=== PATIENT | female | born 1930 | race Caucasian/White ===

== ENCOUNTER 2018-10-15 09:03 | Inpatient (IN) | payer OTHER, MEDICAID ==
[~2018-10-15] VITALS: Ht 152.4 cm; Wt 46.3 kg
[~2018-10-15 09:03] MED LIST: ASPI-864 PO; ATEN1TAB42 PO; FAMO40TA7 PO; LOSA25TA12 PO; NPH,100V SQ; SIMV20TA6 PO
[2018-10-15 09:42] LABS: HEMATOCRIT. 34.9 % (36.0-48.0); HEMOGLOBIN. 11.7 g/dL (12.0-16.0); MEAN CORPUSCULAR HEMOGLOBIN 26.1 pg (28.0-32.0); MEAN PLATELET VOLUME 7.2 fl (7.4-10.4); PLATELET 256 x1000/uL (130-400); RED BLOOD CELL COUNT 4.48 mill/uL (4.2-5.4); RED CELL DISTRIBUTION WIDTH 14.9 % (11.6-14.6)
[2018-10-15 09:47] LABS: CHLORIDE 101 mEq/L (98-107)
[2018-10-15 09:48] LABS: PROTHROMBIN TIME 10.3 sec (9.1-11.1)
[2018-10-15] MEDS ORDERED: ASPIRIN 81MG TABLET PO ONE (10:15)
[2018-10-15] MEDS ORDERED: SODIUM CHLORIDE 0.9% 1,000 ML IV ONE (10:15)
[2018-10-15 10:16] LABS: PLATELET ESTIMATE NORMAL
[2018-10-15] MEDS ORDERED: DEXTROSE 50% WATER 50ML SYRINGE IV PRN (10:45)
[2018-10-15] MEDS ORDERED: ONDANSETRON HCL 4MG/2ML INJ IV PRN (10:45)
[2018-10-15 11:13] LABS: CLARITY URINE CLEAR (CLEAR); COLOR URINE YELLOW (YELLOW); KETONES URINE TRACE (NEGATIVE); LEUKOCYTE ESTERASE URINE NEGATIVE (NEGATIVE); NITRITE URINE NEGATIVE (NEGATIVE); OCCULT BLOOD URINE NEGATIVE (NEGATIVE); PROTEIN URINE 3+ (NEGATIVE); SPECIFIC GRAVITY URINE 1.017 (1.005-1.030); UROBILINOGEN URINE 0.2 E.U./dL (0.2-1.0)
[2018-10-15] MEDS: CLONIDINE 0.1MG TABLET PO PRN (13:08)
[2018-10-15] MEDS: AMLODIPINE 5MG TABLET PO SCH ×2 (15:33→21:28)
[2018-10-15] MEDS ORDERED: LABETALOL 5MG/ML SYR 20 MG/4 ML SYRINGE IV ONE (16:00)
[2018-10-15] MEDS: LOSARTAN POTASSIUM 100 MG TABLET PO SCH (16:28)
[2018-10-15] MEDS: INSULIN LISPRO 100 UNITS/ML SUBCUT SCH ×2 (17:15→21:29)
[2018-10-15] MEDS: BLOOD SUGAR DIAGNOSTIC STRIP TEST SCH ×2 (17:15→21:19)
[2018-10-15 17:30] VITALS: BP 151/74
[2018-10-15 17:32] VITALS: BP 151/74
[2018-10-15] MEDS ORDERED: CLOP75TA33 PO (17:43)
[2018-10-15] MEDS ORDERED: BETA1TAB PO (17:44)
[2018-10-15] MEDS ORDERED: MEMA10TA19 PO (17:45)
[2018-10-15] MEDS ORDERED: QUET25TA34 PO (17:46)
[2018-10-15] MEDS ORDERED: SENN8.6T10 PO (17:47)
[2018-10-15] MEDS ORDERED: MEGE40TA27 PO (17:49)
[2018-10-15] MEDS ORDERED: CIPR-264 PO (17:51)
[2018-10-15] MEDS ORDERED: GLIP5TAB12 PO (17:53)
[2018-10-15] MEDS ORDERED: LOSA100T14 PO (17:53)
[2018-10-15] MEDS ORDERED: TOBR5DRO2 BOTHEYE (17:58)
[2018-10-15] MEDS ORDERED: DOCU-150 PO (18:04)
[2018-10-15] MEDS ORDERED: POLY17PO28 PO (18:06)
[2018-10-15] MEDS: ENOXAPARIN 30MG/0.3ML SYR SUBCUT SCH (19:49)
[2018-10-15 20:00] VITALS: BP 166/75
[2018-10-15] MEDS: METOPROLOL TARTRATE 50MG TABLET PO SCH (21:28)
[2018-10-15] MEDS: ATORVASTATIN CALCIUM 10MG TABLET PO SCH (21:28)
[2018-10-16] VITALS: BP 146/69
[2018-10-16] MEDS: BLOOD SUGAR DIAGNOSTIC STRIP TEST SCH ×4 (05:38→21:00)
[2018-10-16] MEDS: INSULIN LISPRO 100 UNITS/ML SUBCUT SCH ×4 (07:15→22:06)
[2018-10-16 07:31] LABS: HEMATOCRIT. 32.8 % (36.0-48.0); MEAN CORPUSCULAR HEMOGLOBIN 26.3 pg (28.0-32.0); MEAN CORPUSCULAR VOLUME 78.4 fL (81.0-99.0); MEAN PLATELET VOLUME 7.6 fl (7.4-10.4); PLATELET 241 x1000/uL (130-400); RED BLOOD CELL COUNT 4.18 mill/uL (4.2-5.4)
[2018-10-16 07:53] LABS: CHLORIDE 100 mEq/L (98-107)
[2018-10-16 07:55] VITALS: BP 146/68
[2018-10-16] MEDS: LOSARTAN POTASSIUM 100 MG TABLET PO SCH (08:49)
[2018-10-16] MEDS: METOPROLOL TARTRATE 50MG TABLET PO SCH ×2 (08:49→22:02)
[2018-10-16] MEDS: CLOPIDOGREL 75MG TABLET PO SCH (08:49)
[2018-10-16] MEDS: AMLODIPINE 5MG TABLET PO SCH ×2 (08:49→22:03)
[2018-10-16] MEDS ORDERED: MORPHINE SULFATE 4 MG/ML CPJ (NOT FOR IM USE) IV PRN (09:30)
[2018-10-16] MEDS ORDERED: INSULIN GLARGINE UD 100 UNITS/ML SYR SUBCUT SCH ×2 (10:00→22:00)
[2018-10-16] MEDS ORDERED: POTASSIUM CHLORIDE 20MEQ TABLET SR PO SCH (10:15)
[2018-10-16 12:06] VITALS: BP 144/75
[2018-10-16 12:49] LABS: PLATELET ESTIMATE NORMAL
[2018-10-16 16:00] VITALS: BP 152/69
[2018-10-16] MEDS ORDERED: LORAZEPAM 2MG/ML CPJ IV NR (16:15)
[2018-10-16] MEDS: ACETAMINOPHEN 325MG TABLET PO PRN (16:54)
[2018-10-16] MEDS ORDERED: POTASSIUM CHLORIDE 20MEQ/PACKET PO NR ×2 (17:00)
[2018-10-16] MEDS ORDERED: POTASSIUM CHLORIDE 20MEQ/PACKET PO ONE (17:00)
[2018-10-16] MEDS: ENOXAPARIN 30MG/0.3ML SYR SUBCUT SCH (17:40)
[2018-10-16] MEDS: DEXT 5%/0.45% NACL 1000ML 1,000 ML IV SCH (17:57)
[2018-10-16 20:00] VITALS: BP 126/58
[2018-10-16] MEDS: ATORVASTATIN CALCIUM 10MG TABLET PO SCH (22:02)
[2018-10-17] VITALS: BP 125/62
[2018-10-17 04:00] VITALS: BP 176/75
[2018-10-17] MEDS: DEXT 5%/0.45% NACL 1000ML 1,000 ML IV SCH (04:40)
[2018-10-17] MEDS: CLONIDINE 0.1MG TABLET PO PRN (05:08)
[2018-10-17 07:02] LABS: HEMATOCRIT. 33.7 % (36.0-48.0); HEMOGLOBIN. 11.4 g/dL (12.0-16.0); MEAN CORPUSCULAR HEMOGLOBIN 26.7 pg (28.0-32.0); MEAN CORPUSCULAR VOLUME 78.7 fL (81.0-99.0); MEAN PLATELET VOLUME 7.9 fl (7.4-10.4); PLATELET 214 x1000/uL (130-400); RED BLOOD CELL COUNT 4.28 mill/uL (4.2-5.4); RED CELL DISTRIBUTION WIDTH 15.2 % (11.6-14.6)
[2018-10-17] MEDS: BLOOD SUGAR DIAGNOSTIC STRIP TEST SCH ×4 (07:27→21:51)
[2018-10-17] MEDS: INSULIN LISPRO 100 UNITS/ML SUBCUT SCH ×4 (07:27→21:50)
[2018-10-17] MEDS: AMLODIPINE 5MG TABLET PO SCH ×2 (08:07→21:48)
[2018-10-17] MEDS: METOPROLOL TARTRATE 50MG TABLET PO SCH ×2 (08:07→21:49)
[2018-10-17] MEDS: LOSARTAN POTASSIUM 100 MG TABLET PO SCH (08:08)
[2018-10-17] MEDS: CLOPIDOGREL 75MG TABLET PO SCH (08:08)
[2018-10-17 09:09] LABS: CHLORIDE 102 mEq/L (98-107)
[2018-10-17] MEDS: INSULIN GLARGINE UD 100 UNITS/ML SYR SUBCUT SCH ×2 (11:22→21:51)
[2018-10-17] MEDS: MULTIVITAMINS,THER W-MINERALS TABLET PO SCH (11:22)
[2018-10-17 13:13] VITALS: BP 118/70
[2018-10-17] MEDS: CLONIDINE 0.1MG TABLET PO SCH ×2 (13:33→21:49)
[2018-10-17 15:24] LABS: PLATELET ESTIMATE NORMAL
[2018-10-17 16:25] VITALS: BP 159/65
[2018-10-17] MEDS: ENOXAPARIN 30MG/0.3ML SYR SUBCUT SCH (17:35)
[2018-10-17 20:00] VITALS: BP 136/82
[2018-10-17] MEDS: ATORVASTATIN CALCIUM 10MG TABLET PO SCH (21:48)
[2018-10-18] VITALS: BP 152/67
[2018-10-18] MEDS: ACETAMINOPHEN 325MG TABLET PO PRN ×2 (00:41→10:56)
[2018-10-18 04:00] VITALS: BP 134/59
[2018-10-18] MEDS: INSULIN LISPRO 100 UNITS/ML SUBCUT SCH ×4 (07:01→21:44)
[2018-10-18] MEDS: CLONIDINE 0.1MG TABLET PO SCH ×3 (07:01→21:42)
[2018-10-18] MEDS: BLOOD SUGAR DIAGNOSTIC STRIP TEST SCH ×4 (07:02→21:42)
[2018-10-18 08:00] VITALS: BP 156/75
[2018-10-18 08:23] LABS: HEMATOCRIT. 35.1 % (36.0-48.0); HEMOGLOBIN. 11.6 g/dL (12.0-16.0); MEAN CORPUSCULAR HEMOGLOBIN 26.1 pg (28.0-32.0); MEAN CORPUSCULAR VOLUME 78.8 fL (81.0-99.0); MEAN PLATELET VOLUME 7.4 fl (7.4-10.4); PLATELET 240 x1000/uL (130-400); RED BLOOD CELL COUNT 4.45 mill/uL (4.2-5.4); RED CELL DISTRIBUTION WIDTH 15.2 % (11.6-14.6)
[2018-10-18 09:29] LABS: PLATELET ESTIMATE NORMAL
[2018-10-18] MEDS: MULTIVITAMINS,THER W-MINERALS TABLET PO SCH (10:39)
[2018-10-18] MEDS: CLOPIDOGREL 75MG TABLET PO SCH (10:40)
[2018-10-18] MEDS: METOPROLOL TARTRATE 50MG TABLET PO SCH ×2 (10:41→21:42)
[2018-10-18] MEDS: AMLODIPINE 5MG TABLET PO SCH ×2 (10:41→21:42)
[2018-10-18] MEDS: INSULIN GLARGINE UD 100 UNITS/ML SYR SUBCUT SCH ×2 (10:45→21:45)
[2018-10-18] MEDS: LOSARTAN POTASSIUM 100 MG TABLET PO SCH (10:56)
[2018-10-18 12:00] VITALS: BP 121/54
[2018-10-18 16:00] VITALS: BP 130/59
[2018-10-18] MEDS: ENOXAPARIN 30MG/0.3ML SYR SUBCUT SCH (17:47)
[2018-10-18 20:00] VITALS: BP 144/52
[2018-10-18] MEDS: ATORVASTATIN CALCIUM 10MG TABLET PO SCH (21:42)
[2018-10-19] VITALS (7 sets, daily range): BP systolic 121–157; BP diastolic 44–71
[2018-10-19] MEDS: BLOOD SUGAR DIAGNOSTIC STRIP TEST SCH ×4 (06:35→21:00)
[2018-10-19] MEDS: CLONIDINE 0.1MG TABLET PO SCH ×3 (06:51→22:48)
[2018-10-19] MEDS: AMLODIPINE 5MG TABLET PO SCH ×2 (08:42→22:05)
[2018-10-19] MEDS: LOSARTAN POTASSIUM 100 MG TABLET PO SCH (08:42)
[2018-10-19] MEDS: METOPROLOL TARTRATE 50MG TABLET PO SCH ×2 (08:43→22:05)
[2018-10-19] MEDS: CLOPIDOGREL 75MG TABLET PO SCH (08:43)
[2018-10-19] MEDS: MULTIVITAMINS,THER W-MINERALS TABLET PO SCH (08:43)
[2018-10-19] MEDS: INSULIN LISPRO 100 UNITS/ML SUBCUT SCH ×4 (08:45→23:16)
[2018-10-19] MEDS: INSULIN GLARGINE UD 100 UNITS/ML SYR SUBCUT SCH ×2 (09:21→23:16)
[2018-10-19] MEDS: ENOXAPARIN 30MG/0.3ML SYR SUBCUT SCH (17:23)
[2018-10-19] MEDS: ATORVASTATIN CALCIUM 10MG TABLET PO SCH (22:05)
[2018-10-20] VITALS: BP 152/70
[2018-10-20 04:00] VITALS: BP 169/86
[2018-10-20] MEDS: CLONIDINE 0.1MG TABLET PO SCH ×2 (05:19→14:00)
[2018-10-20] MEDS: BLOOD SUGAR DIAGNOSTIC STRIP TEST SCH ×4 (06:54→21:00)
[2018-10-20 07:35] LABS: BASOPHILS % 0.4 % (0.0-2.0); EOSINOPHILS % 1.5 % (0.0-5.0); HEMATOCRIT. 32.2 % (36.0-48.0); HEMOGLOBIN. 10.9 g/dL (12.0-16.0); LYMPHOCYTES % 13.8 % (20.0-50.0); MEAN CORPUSCULAR HEMOGLOBIN 26.3 pg (28.0-32.0); MEAN CORPUSCULAR VOLUME 78.1 fL (81.0-99.0); MEAN PLATELET VOLUME 7.6 fl (7.4-10.4); MONOCYTES % 13.8 % (2.0-8.0); NEUTROPHILS % 70.5 % (40.0-76.0); PLATELET 259 x1000/uL (130-400); RED BLOOD CELL COUNT 4.12 mill/uL (4.2-5.4); RED CELL DISTRIBUTION WIDTH 15.3 % (11.6-14.6)
[2018-10-20 08:00] VITALS: BP 159/55
[2018-10-20] MEDS: AMLODIPINE 5MG TABLET PO SCH ×2 (09:11→22:13)
[2018-10-20] MEDS: MULTIVITAMINS,THER W-MINERALS TABLET PO SCH (09:11)
[2018-10-20] MEDS: CLOPIDOGREL 75MG TABLET PO SCH (09:11)
[2018-10-20] MEDS: LOSARTAN POTASSIUM 100 MG TABLET PO SCH (09:12)
[2018-10-20] MEDS: METOPROLOL TARTRATE 50MG TABLET PO SCH ×2 (09:12→22:13)
[2018-10-20] MEDS: INSULIN LISPRO 100 UNITS/ML SUBCUT SCH ×4 (09:16→21:00)
[2018-10-20] MEDS: INSULIN GLARGINE UD 100 UNITS/ML SYR SUBCUT SCH ×2 (10:52→22:57)
[2018-10-20 12:00] VITALS: BP 132/60
[2018-10-20 16:00] VITALS: BP 150/62
[2018-10-20] MEDS: ENOXAPARIN 30MG/0.3ML SYR SUBCUT SCH (16:00)
[2018-10-20 20:00] VITALS: BP 167/73
[2018-10-20] MEDS ORDERED: CLONIDINE 0.1MG TABLET PO SCH (22:00)
[2018-10-20] MEDS: ATORVASTATIN CALCIUM 10MG TABLET PO SCH (22:13)
[2018-10-21] VITALS: BP 167/73
[2018-10-21 04:00] VITALS: BP 173/83
[2018-10-21] MEDS: BLOOD SUGAR DIAGNOSTIC STRIP TEST SCH ×4 (07:20→21:00)
[2018-10-21] MEDS: INSULIN LISPRO 100 UNITS/ML SUBCUT SCH (07:50)
[2018-10-21 08:00] VITALS: BP 173/73
[2018-10-21] MEDS: INSULIN GLARGINE UD 100 UNITS/ML SYR SUBCUT SCH (09:23)
[2018-10-21] MEDS ORDERED: MORPHINE SULFATE 4 MG/ML CPJ (NOT FOR IM USE) IV PRN (11:00)
[2018-10-21] MEDS ORDERED: LORAZEPAM 2MG/ML CPJ IV PRN (11:00)
[2018-10-21 12:00] VITALS: BP 165/73
[2018-10-21 16:00] VITALS: BP 163/65
[2018-10-21 20:00] VITALS: BP 133/73
[2018-10-21] MEDS ORDERED: METOPROLOL TARTRATE 100MG TABLET PO SCH (21:00)
[2018-10-22] VITALS (7 sets, daily range): BP systolic 121–168; BP diastolic 65–116
[2018-10-22] MEDS: BLOOD SUGAR DIAGNOSTIC STRIP TEST SCH ×4 (07:47→20:50)
[2018-10-22] MEDS ORDERED: CLONIDINE 0.1MG TABLET PO PRN (17:30)
[2018-10-22] MEDS ORDERED: ATORVASTATIN CALCIUM 40MG TABLET PO SCH (21:00)
[2018-10-23] MEDS ORDERED: CLOPIDOGREL 75MG TABLET PO SCH (09:00)
== END 2018-10-22 20:57 | disposition hospice, home (50) | DRG 65 ==
LOC: ER 09:23 → EDBEDREQTM 10:26 → EDBEDREQSVC 10:26 → EDBEDREQ 10:26 → 5WST 10:49 → EDBEDREQ 11:01 → EDBEDREQTM 11:01 → EDBEDREQSVC 11:01 → ENRESERV 14:20 → 6EST 10-19 03:55
PROVIDERS: ADMIT Internal Medicine; ATTEND Internal Medicine
DX: I63.9 Cerebral infarction, unspecified (principal); E44.1 Mild protein-calorie malnutrition; E87.1 Hypo-osmolality and hyponatremia; Z68.1 Body mass index [BMI] 19.9 or less, adult; I10 Essential (primary) hypertension; G30.9 Alzheimer's disease, unspecified; F02.80 Dementia in other diseases classified elsewhere, unspecified severity, without behavioral disturbance, psychotic disturbance, mood disturbance, and anxiety; Z66 Do not resuscitate; Z51.5 Encounter for palliative care; E87.6 Hypokalemia; E78.5 Hyperlipidemia, unspecified; E11.9 Type 2 diabetes mellitus without complications; L89.151 Pressure ulcer of sacral region, stage 1; Z86.73 Personal history of transient ischemic attack (TIA), and cerebral infarction without residual deficits; Z78.1 Physical restraint status; Z79.899 Other long term (current) drug therapy; Z79.02 Long term (current) use of antithrombotics/antiplatelets
CPT/HCPCS: 36415; 70551; 71045; 80048; 80061; 82962; 83036; 84134; 84443; 84484; 92610; 93005; 93306; 93880; 96372; 96374; 97112; 97163; 97166; 99285; J1650; J1815; J3490; J7030; J7040